=== PATIENT | male | born 1935 | race Caucasian/White ===

== ENCOUNTER 2016-10-01 22:26 | Inpatient (IN) | payer MEDICARE, OTHER ==
--- NOTE | ~2016-10-01 | DS ---
Discharge Summary [facility] [address] [place]. [address] NAME: BECKY BRICE : 33 STATUS : DIS IN PAT#: [id number] AGE: 81 ADM/REG DATE : 10/02/16 MR#: [id number] REPORT SERV DATE: 10/04/16 DICTATED BY: DATE: REPORT STATUS : Draft TRANSCRIBED BY: MODL DATE: 10/03/16 ADMISSION DATE: 10/02/2016 DISCHARGE DATE: 10/03/2016 DISCHARGE DIAGNOSES: 1. Acute on chronic systolic heart failure. 2. Diabetes mellitus, type 2. 3. Benign hypertension. 4. Chronic kidney disease, stage 3b. 5. Chronic dementia. 6. Sore throat. PROCEDURES AND IMAGIN. On 10/01/2016, portable chest x-ray showed venous congestion with bibasilar atelectasis and small bilateral pleural effusions and an enlarged stable cardiac silhouette. 2. On 10/03/2016, chest PA and lateral showed vascular congestion with atelectasis and small effusions have resolved compared to the previous study. HOSPITAL COURSE: This is a pleasant 81-year-old male, who has a history of CHF, hypertension, mild dementia, CKD 3, insulin-dependent diabetes, and shortness of breath. Please see admission H and P by [place] on 10/01/2016. During his stay, the patient has been ambulatory and has had no complaints of pain in general, but has complained specifically of having a sore throat and a cough. The patient has some shortness of breath with exertion, but O2 saturation remains around 92% with exertion. The patient has had several rounds of diuresis for his volume overload which has affected his kidneys. It was also discussed with the patient that his baclofen and his NSAID use was also bad for his kidneys. The patient states he does see a kidney doctor, but does not remember which one. During his stay due to a sore throat a strep test was ordered and the swab was negative. The patient's throat is mildly erythematous without any type of ulceration noted. The patient states when he moves in the bed he does have some abdominal discomfort from his hiatal hernia. The patient has a loose cough for which he is not expectorating. It was extensively discussed with the patient about his use of his Lantus insulin at home and the fact that we have not been giving him any Lantus insulin while he is here. The patient has agreed to start at a lower dose and titrate it up due to his blood sugars. PHYSICAL EXAMINATION: VITAL SIGNS: Blood pressure 136/74, O2 saturation is 93% on room air, respirations are 20, heart rate is 74, and temperature is 96.9. HEENT: Head is atraumatic and normocephalic. Pupils are equal, round, and reactive to light. Sclerae are clear and nonicteric. NECK: Neck is supple with no obvious lymphadenopathy or thyromegaly. The patient has positive JVD. LUNGS: Clear to auscultation with normal respiratory effort. The patient has a loose cough after taking deep breaths. GI: Abdomen is soft and nontender with active bowel sounds in all four quadrants. Normal bowel habitus. No palpable organomegaly. Discharge Summary [id number] [place]. [address] NAME: BECKY BRICE : 33 STATUS : DIS IN PAT#: [id number] AGE: 81 ADM/REG DATE : 10/02/16 MR#: [id number] REPORT SERV DATE: 10/04/16 DICTATED BY: DATE: REPORT STATUS : Draft TRANSCRIBED BY: MODL DATE: 10/03/16 EXTREMITIES: The patient has minimal nonpitting edema in bilateral lower extremities with normal distal pulses and no calf tenderness. MUSCULOSKELETAL: Moves all extremities x4. Ambulatory without assistance. SKIN: Skin is warm and dry with normal color and turgor. NEURO/PSYCH: The patient is alert and oriented x3, pleasant and cooperative. Cranial nerves 2 through 12 are grossly intact. The patient is eating well and will be discharged home on an 1800 calorie, diabetic diet. DISCHARGE MEDICATIONS: 1. Aspirin 81 mg daily. 2. Baclofen 10 mg three times daily. 3. Lasix 40 mg p.o. daily. 4. Caltrate 600 mg daily. 5. Coreg 6.25 mg twice daily. 6. Celexa 10 mg daily. 7. Aricept 10 mg daily. 8. Flonase two puffs in each nostril daily. 9. Tylenol 650 mg p.o. q.4 hours p.r.n. pain. 10.Cinnamon bark oral supplement one capsule daily. 11.Hydes-3 fatty acid 1000 mg daily. 12.Potassium chloride 10 mEq daily. 13.Niacin 500 mg daily. 14.Nitrostat 0.4 mg sublingual p.r.n. chest pain. 15.Lisinopril 5 mg daily. 16.Isosorbide 30 mg daily. 17.Lantus 30 units twice daily and titrate as needed up to 60 units twice daily. 18.The patient will be using home NovoLog sliding scale which is 10 to 20 units three times a day before meals. 19.Claritin 10 mg daily. 20.Namenda 5 mg daily. 21.Omeprazole 20 mg daily. 22.Paricalcitol 1 mcg daily. ALLERGIES: THE PATIENT IS ALLERGIC TO STREPTOMYCIN FOR WHICH HE GETS HIVES. DISCHARGE INSTRUCTIONS: The patient is to follow up with Dr. Becker in one week, and Dr. Hamilton in three to four weeks. The patient is to have daily weights. The patient is to be on a 2 g sodium, 1.5 L fluid restriction and this was discussed extensively with the patient. The patient feels that he will be noncompliant with his fluid restrictions. Approximately 25 minutes have been spent coordinating discharge care of this patient including [id number] encounter and summarization of the discharge. [facility] Discharge Summary [address] [address] NAME: BECKY BRICE : 33 STATUS : DIS IN [facility]#: [id number] AGE: 81 ADM/REG DATE : 10/02/16 MR#: [id number] REPORT SERV DATE: 10/04/16 DICTATED BY: DATE: REPORT STATUS : Draft TRANSCRIBED BY: KELSIE DATE: 10/03/16 Imani Sweet NP / [id number] CC: Lazaro Aparicio Jr, MD
--- NOTE | ~2016-10-01 | HP ---
History And Physical [address] [place]. [address] NAME: BECKY BRICE : 33 STATUS : ADM Donna PAT#: [id number] AGE: 81 ADM/REG DATE : 10/01/16 MR#: [id number] REPORT SERV DATE: 10/02/16 DICTATED BY: STAR VALDEZ DATE: 10/01/16 REPORT STATUS : Draft TRANSCRIBED BY: KELSIE DATE: 10/01/16 DATE OF ADMISSION: 10/01/2016 CHIEF COMPLAINT: Shortness of breath. HISTORY OF PRESENT ILLNESS: The patient is an 81-year-old male, retired police clerk with history of CHF followed by Dr. Hamilton, hypertension, mild dementia, CKD stage 3, diabetes insulin dependent, who presents with complaints of shortness of breath. The patient reports that symptoms have been happening approximately last three months. The patient has also had chronic weight gain. The patient thinks that he needs increased Lasix. He is trying to wait out over the last couple of days but he has been huffing and puffing over the last three days because he was waiting to get to his appointment with Dr. Hamilton, however, today by insistence with his daughter he comes in. He did get diuretic on ambulance en route. Symptoms were constant, moderate severity. No pain or radiating symptoms but did have shortness of breath that has improved. No fevers or diarrhea. Symptoms are worsened with breathing, relieved by a diuretic that was given. The patient does report that he has mild orthopnea, approximately two-pillow orthopnea. REVIEW OF SYSTEMS: The patient reports for additional 10-point review of systems negative except for that noted in the HPI. PAST MEDICAL HISTORY: Hypertension, hyperlipidemia, prostate carcinoma, diabetes, CKD stage IIIB, congestive heart failure. SOCIAL HISTORY: He has outlived three of his , retired , police clerk, and lives with daughter now. No smoking, alcohol, or illicits currently. SURGERIES: Coronary artery bypass, a left carotid endarterectomy, tonsillectomy, cholecystectomy, left shoulder, prostatectomy, TURP, orchiectomy, cataract, L-spine decompression. FAMILY HISTORY: Heart disease, blood pressure, and TB. ALLERGIES: STREPTOMYCIN. MEDICATIONS: Aspirin, baclofen, Caltrate, Coreg, cinnamon bark, Celexa, Aricept, Lasix, NovoLog, Lantus, Imdur, Namenda, Aleve, niacin, Nitrostat, fish oil, Prilosec, Zemplar, and Klor-Con 10. EKG: Sinus rhythm with occasional PVCs, rate of 84, QTc 475. PHYSICAL EXAMINATION: VITAL SIGNS: The patient's blood pressure 153/73, temperature 98, pulse 84, respirations 18, O2 sats 100% on 2 L. History And Physical [address] [address] NAME: BECKY BRICE : 33 STATUS : ADM Donna PAT#: [id number] AGE: 81 ADM/REG DATE : 10/01/16 MR#: [id number] REPORT SERV DATE: 10/02/16 DICTATED BY: STAR VALDEZ DATE: 10/01/16 REPORT STATUS : Draft TRANSCRIBED BY: KELSIE DATE: 10/01/16 GENERAL: No acute distress. Calm, pleasant, now. EYES: No scleral icterus. EOMI. ENT: Mild right-sided JVD. Moist mucous membranes. Tongue midline. Large nasal passages. RESPIRATORY: Clear on upper air rendon, mild rales in lower lung rendon. CV: Regular rate. Positive JVD, trace edema, palpable pulses. GI: Soft, nontender, nondistended. Central obesity. : Deferred. MUSCULOSKELETAL: Moves all extremities x4. SKIN: Warm and dry. LYMPH: No cervical lymphadenopathy. HEME: No bleeding or bruising. NEURO: Alert and oriented. Moves all extremities x4. PSYCH: Appropriate mood and affect. DATA: BNP 538.6. CBC: WBC count 9.0, H and H 12.4 and 37.2, MCV 97.4, platelets 259. INR 1.1. CMP: Sodium 141, potassium 4.2, chloride 106, bicarb 25, BUN and creatinine 21 and 1.7, glucose of 53, calcium 8.5. LFTs within normal limits. Troponin negative. ASSESSMENT AND PLAN: 1. Systolic heart failure exacerbation. 2. Insulin-dependent diabetes. 3. Hypertension. 4. Chronic kidney disease stage IIIB. 5. Dementia. PLAN: 1. For systolic heart failure exacerbation, has not been having fluid restriction. The patient reports that he drinks three Dr. Pepper a day including 4-5 cups of water daily. He will need to have heart failure diabetic education. Diurese with IV diuresis and monitor. He does have appointment with Dr. Hamilton in approximately four days. We will courtesy notify of admission. He has had echocardiogram approximately one year ago. Prior echocardiogram showed ejection fraction of 39% dilated left atrium. Heart failure protocol initiated. Fluid, restriction, O2 as needed, beta fernando, consider PORFIRIO inhibitor before discharge. 2. Insulin-dependent diabetes. The patient currently low in the 50s on BMP repeating, hold all except for sliding scale insulin as needed, and the patient tolerating p.o. currently. 3. Hypertension, on medications. 4. CKD stage IIIB, stable. 5. Dementia, on medication. Continue home medications. All questions answered to the patient at bedside. [facility] [place] History And Physical [address] [address] NAME: BECKY BRICE : 33 STATUS : ADM Donna PAT#: [id number] AGE: 81 ADM/REG DATE : 10/01/16 MR#: [id number] REPORT SERV DATE: 10/02/16 DICTATED BY: STAR VALDEZ DATE: 10/01/16 REPORT STATUS : Draft TRANSCRIBED BY: MODL DATE: 10/01/16 MD Perfecto / [id number] CC: Lazaro Aparicio Jr, MD
[2016-10-01 21:52] LABS: BASOPHILS 0.4 %; BASOPHILS ABSOLUTE 0.04 10/3/uL (0.0-0.16); EOSINOPHILS 3.9 %; EOSINOPHILS ABSOLUTE 0.35 10/3/uL (0.0-0.53); HEMOGLOBIN 12.4 g/dL (13.6-17.8); IMMATURE GRANULOCYTES 0.2 %; IMMATURE GRANULOCYTES ABSOLUTE 0.02 10/3/uL (0.0-0.11); LYMPHOCYTES 19.7 %; LYMPHOCYTES ABSOLUTE 1.77 10/3/uL (0.67-4.30); MEAN CORPUS HGB CONC 33.3 g/dL (32.0-36.0); MEAN CORPUSCULAR HEMOGLOB 32.5 pg (26.0-34.0); MEAN PLATELET VOLUME 9.4 fL (9.2-13.0); MONOCYTES 10.9 %; MONOCYTES ABSOLUTE 0.98 10/3/uL (0.21-1.20); NEUTROPHILS 64.9 %; NEUTROPHILS ABSOLUTE 5.81 10/3/uL (2.02-8.40); PLATELET COUNT 259 10/3/uL (150-400); RBC DISTRIBUTION WIDTH 13.1 % (12.0-16.0); RED CELL COUNT 3.82 10/6/uL (4.7-6.1)
[2016-10-01 21:53] LABS: HEMATOCRIT 37.2 % (40.0-51.0); MANUAL DIFF NO %; MEAN CORPUSCULAR VOLUME 97.4 fL (80-100)
[2016-10-01 22:06] LABS: INTERNATIONAL NORMAL RATI 1.1 UNITS (-); PARTIAL THROMBO TIME 26.1 SEC (22.5-37.2); PROTIME (NOT ORD) 13.6 SEC (12.0-14.5)
[2016-10-01 22:08] LABS: A/G RATIO 0.8 (0.7-1.9); ALBUMIN 3.6 G/DL (3.5-5.0); CALCIUM, SERUM 8.5 MG/DL (8.5-10.4); CHLORIDE, SERUM 106 MMOL/L (96-112); CO2 (CARBON DIOXIDE) 25 MMOL/L (24-34); GFR AFRICAN AMERICAN 42 ML/MIN (>=60); GFR NON AFRICAN AMERICAN 36 ML/MIN (>=60); GLOBULIN 4.7 G/DL (2.5-4.1); POTASSIUM, SERUM 4.2 MMOL/L (3.5-5.3); SGOT(AST) 32 U/L (5-40); SGPT(ALT) 50 U/L (5-65); SODIUM, SERUM 141 MMOL/L (135-148); TOTAL BILIRUBIN 0.4 MG/DL (0-1.2); TOTAL PROTEIN 8.3 G/DL (6.0-8.5); TROPONIN I 0.04 NG/ML (<0.05)
[2016-10-01 22:09] LABS: ALKALINE PHOSPHATASE 115 U/L (45-117); BUN (BLOOD UREA NITROGEN) 21 MG/DL (6-23); GLUCOSE, SERUM 53 MG/DL (60-99)
[~2016-10-01 22:26] MED LIST: ARICEPT5 PO; ASAB PO; ATEN25 PO; ATV1 PO; CALTRA600D PO; CELEXA10 PO; CINNAMONPO PO; COREG12 PO; COREG6 PO; CRESTOR20 MG PO; CRESTOR40 MG PO; DOX10 PO; DOXEPIN; DOXEPIN HCL100 MG PO; FISH OIL1200 MG PO; FISH-EPA1000 MG PO; GLUCOTRO10 PO; GLUCPH PO; IMDUR30 PO; JANUVIA100 MG PO; K-TABS10 MEQ PO; KDUR20 PO; KLOR-CON 1010 MEQ PO; L40 PO; LANTUS SC; LOM PO; LORTAB 5 PO; LUMIGAN OPH; MEG40 PO; MICRO-K10 MEQ PO; NAMENDA5 PO; NASACORTAQ NAS; NIACIN 500 PO; NIACOR500 MG PO; NIASPAN500 PO; NITROQUICK0.4 MG SL; NITROSTAT0.4 MG SL; NOVOLOG SC; NTG150 SL; OS500+D PO; PRILO PO; PRILOSEC40 MG PO; PRIN10 PO; PROMEGA PO; PYR100B PO; RESTORIL30 MG PO; SINEQUAN 50 MG50 MG PO; SINEQUAN 75 MG75 MG PO; SOMATAB PO; TRILIPIX135 MG PO; VICODINTAB PO; VITAMIN B-121000 MC1 SL; ZEMPLAR1 PO; ZOCOR40 PO; [UNRECOGNIZED DRUG - REMARK]; [UNRECOGNIZED DRUG - REMARK]; [UNRECOGNIZED DRUG - REMARK]
[2016-10-01] MEDS ORDERED: ASAB PO (22:39)
[2016-10-01] MEDS ORDERED: LIOR10 PO (22:39)
[2016-10-01] MEDS ORDERED: COREG6 PO (22:40)
[2016-10-01] MEDS ORDERED: CINNAMONPO PO (22:40)
[2016-10-01] MEDS ORDERED: CALTRAT600 PO (22:40)
[2016-10-01] MEDS ORDERED: L40 PO (22:41)
[2016-10-01] MEDS ORDERED: CELEXA10 PO (22:41)
[2016-10-01] MEDS ORDERED: FISH-EPA1000 MG PO (22:41)
[2016-10-01] MEDS ORDERED: ARICEPT10 PO (22:41)
[2016-10-01] MEDS ORDERED: NAMENDA5 PO (22:42)
[2016-10-01] MEDS ORDERED: IMDUR30 PO (22:42)
[2016-10-01] MEDS ORDERED: KLOR-CON 1010 MEQ PO (22:42)
[2016-10-01] MEDS ORDERED: LANTUS SC (22:42)
[2016-10-01] MEDS ORDERED: NIACIN 500 PO (22:43)
[2016-10-01] MEDS ORDERED: NITROSTAT0.4 MG SL (22:43)
[2016-10-01] MEDS ORDERED: PRILO PO (22:43)
[2016-10-01] MEDS ORDERED: ALEVE220 MG PO (22:43)
[2016-10-01] MEDS ORDERED: ZEMPLAR1 PO (22:44)
[2016-10-02 13:58] LABS: BASOPHILS 0.4 %; BASOPHILS ABSOLUTE 0.03 10/3/uL (0.0-0.16); EOSINOPHILS 4.8 %; EOSINOPHILS ABSOLUTE 0.32 10/3/uL (0.0-0.53); HEMOGLOBIN 11.7 g/dL (13.6-17.8); IMMATURE GRANULOCYTES 0.3 %; IMMATURE GRANULOCYTES ABSOLUTE 0.02 10/3/uL (0.0-0.11); LYMPHOCYTES 25.8 %; LYMPHOCYTES ABSOLUTE 1.73 10/3/uL (0.67-4.30); MEAN CORPUS HGB CONC 33.4 g/dL (32.0-36.0); MEAN CORPUSCULAR HEMOGLOB 32.1 pg (26.0-34.0); MEAN CORPUSCULAR VOLUME 96.2 fL (80-100); MEAN PLATELET VOLUME 9.6 fL (9.2-13.0); MONOCYTES 14.6 %; MONOCYTES ABSOLUTE 0.98 10/3/uL (0.21-1.20); NEUTROPHILS 54.1 %; NEUTROPHILS ABSOLUTE 3.62 10/3/uL (2.02-8.40); PLATELET COUNT 224 10/3/uL (150-400); RBC DISTRIBUTION WIDTH 13.1 % (12.0-16.0); RED CELL COUNT 3.64 10/6/uL (4.7-6.1); WHITE BLOOD CELLS 6.7 10/3/uL (4.5-10.5)
[2016-10-02 13:59] LABS: MANUAL DIFF NO %
[2016-10-02 14:10] LABS: CALCIUM, SERUM 8.5 MG/DL (8.5-10.4); CHLORIDE, SERUM 100 MMOL/L (96-112); CO2 (CARBON DIOXIDE) 25 MMOL/L (24-34); CREATININE 1.92 MG/DL (0.70-1.30); GFR AFRICAN AMERICAN 36 ML/MIN (>=60); GFR NON AFRICAN AMERICAN 31 ML/MIN (>=60); POTASSIUM, SERUM 3.9 MMOL/L (3.5-5.3); SODIUM, SERUM 138 MMOL/L (135-148)
[2016-10-02 14:13] LABS: BUN (BLOOD UREA NITROGEN) 25 MG/DL (6-23); GLUCOSE, SERUM 213 MG/DL (60-99)
[2016-10-02 14:57] LABS: TROPONIN I 0.05 NG/ML (<0.05)
[2016-10-03 04:08] LABS: BUN (BLOOD UREA NITROGEN) 32 MG/DL (6-23); CALCIUM, SERUM 8.4 MG/DL (8.5-10.4); CHLORIDE, SERUM 104 MMOL/L (96-112); CO2 (CARBON DIOXIDE) 26 MMOL/L (24-34); CREATININE 2.49 MG/DL (0.70-1.30); GFR AFRICAN AMERICAN 27 ML/MIN (>=60); GFR NON AFRICAN AMERICAN 23 ML/MIN (>=60); GLUCOSE, SERUM 191 MG/DL (60-99); SODIUM, SERUM 141 MMOL/L (135-148)
[2016-10-03] MEDS ORDERED: FLONASE NAS (19:04)
[2016-10-03] MEDS ORDERED: PRIN5 PO (19:08)
[2016-10-03] MEDS ORDERED: CLARIT10 PO (19:09)
[2016-10-03] MEDS ORDERED: T PO (19:12)
[2016-10-03] MEDS ORDERED: TESSALON200 MG PO (19:13)
== END 2016-10-03 22:30 | disposition home health service (06) | DRG 291 ==
LOC: ER 22:26 → CDU1 23:55 → CDU2 10-02 00:45 → 7NO 10-02 18:07
PROVIDERS: Emergency Medicine; Internal Medicine; Neurological Surgery
DX: I13.0 Hypertensive heart and chronic kidney disease with heart failure and stage 1 through stage 4 chronic kidney disease, or unspecified chronic kidney disease (principal); I50.23 Acute on chronic systolic (congestive) heart failure; E11.22 Type 2 diabetes mellitus with diabetic chronic kidney disease; F03.90 Unspecified dementia, unspecified severity, without behavioral disturbance, psychotic disturbance, mood disturbance, and anxiety; N18.3 Chronic kidney disease, stage 3 (moderate); I27.2 Other secondary pulmonary hypertension; J02.9 Acute pharyngitis, unspecified; I25.10 Atherosclerotic heart disease of native coronary artery without angina pectoris; Z88.1 Allergy status to other antibiotic agents; Z79.82 Long term (current) use of aspirin; Z79.4 Long term (current) use of insulin; Z85.46 Personal history of malignant neoplasm of prostate; Z90.49 Acquired absence of other specified parts of digestive tract
CPT/HCPCS: 71010; 71020; 80048; 80053; 82962; 83735; 83880; 84484; 85025; 85610; 85730; 87070; 87205; 87880; 93005; 93306; 94640; 99285; A9270-GY